=== PATIENT | female | born 1975 | race Caucasian/White ===

== ENCOUNTER → 2023-08-19 12:36 | Outpatient (REF) | payer BC, SELFPAY | LOC: RAD 12:36 | PROVIDERS: ATTENDING PHYSICIAN Obstetrics & Gynecology Gynecology; FAMILY PHYSICIAN Family Medicine | DX: N93.9 Abnormal uterine and vaginal bleeding, unspecified (principal) | CPT/HCPCS: 76830; 76856 ==

== ENCOUNTER → 2023-10-24 08:52 | Outpatient (REF) | payer BC, SELFPAY | LOC: WDC 08:52 | PROVIDERS: ATTENDING PHYSICIAN Obstetrics & Gynecology Gynecology; FAMILY PHYSICIAN Family Medicine | DX: R92.2 Inconclusive mammogram (principal) | CPT/HCPCS: 76641 ==

== ENCOUNTER → 2023-10-29 12:11 | Outpatient (REF) | payer BC, SELFPAY | LOC: RAD 12:11 | PROVIDERS: ATTENDING PHYSICIAN Nurse Practitioner Family; FAMILY PHYSICIAN Family Medicine | DX: M53.9 Dorsopathy, unspecified (principal) | CPT/HCPCS: 72110 ==

== ENCOUNTER → 2024-01-19 13:56 | Outpatient (REF) | payer BC, SELFPAY | LOC: RCS 13:56 | PROVIDERS: ATTENDING PHYSICIAN Internal Medicine Cardiovascular Disease; FAMILY PHYSICIAN Family Medicine | DX: R00.2 Palpitations (principal) | CPT/HCPCS: 93306 ==

== ENCOUNTER → 2024-03-20 13:32 | Outpatient (REF) | payer BC, SELFPAY | LOC: WDC 13:32 | PROVIDERS: ATTENDING PHYSICIAN Obstetrics & Gynecology Gynecology; FAMILY PHYSICIAN Family Medicine | DX: Z12.31 Encounter for screening mammogram for malignant neoplasm of breast (principal) | CPT/HCPCS: 77063; 77067 ==

== ENCOUNTER 2024-07-05 10:40 | Emergency (ER) | payer BC, SELFPAY ==
[2024-07-05 10:58] VITALS: BP 139/88
--- NOTE | 2024-07-05 11:03 | ED.GENMED ---
ED Provider Triage
<Lashell Galicia PA-C - Last Filed: 07/05/24 11:20>
-
Patient seen by provider in Triage?: Seen in Triage
49yoF here with a migraine x 4 days. C/o L arm tingling that started this morning. Called her neurologist and prescribed a steroid pack but told to go to the ED for eval. Headache currently a 4-5/10 in severity. Has not had a migraine in many years,
controlled on Emgality. Denies CP/SOB. No weakness, paresthesias, visual changes, vomiting.
No focal deficits noted. Will order labs and CT head.
History of Present Illness
<Lashell Galicia PA-C - Last Filed: 07/05/24 11:20>
General
Chief Complaint: Headache
Time Seen by Provider: 07/05/24 11:49
<Allison Pinzon SUPERVISOR GLYCERIN - Last Filed: 07/05/24 18:19>
General
Source: patient
Exam Limitations: none
Nursing documentation reviewed up to this point in time: agreed with
History of Present Illness
History of Present Illness:
49-year-old female with history of migraines, GERD, anxiety presents for general headache that goes from the back of her neck and around her head, '06/03.' She states she has had the headache for the past 4 days and has been taking Advil with no
improvement. She does have a history of migraines but has not had one for 6 years as she is taking Emgality. She states she has been sleeping well and the headache is not there in the mornings when she wakes up but it comes shortly after she is up
and around. Today she awakened with left arm feeling 'numb-candace and tingling.' She called her headache specialist PA and has an appointment in 3 weeks. He sent in a prescription for a Medrol Dosepak and also for Nurtec and Ubrelvy. He instructed
her to come to ED due to the left arm numbness. She admits she thinks she slept on the arm 'wrong' and this numb feeling is almost completely gone.
Past History
<Allison Pinzon SUPERVISOR GLYCERIN - Last Filed: 07/05/24 18:19>
Past History
ED Past Medical History: GERD and Other (Migraines)
ED Past Surgical History: and Other (hernia repair)
Review of Systems
<Allison Pinzon SUPERVISOR GLYCERIN - Last Filed: 07/05/24 18:19>
Review of Systems
Allergies reviewed?: Yes
All Other Systems: ROS reviewed and negative except as documented in HPI and ROS
Constitutional: Denies fever or chills
ABD/GI: Denies nausea or vomiting
Skin: Reports no symptoms
Neurological: Reports headache and other (numbness/tingling left arm on awakening, almost completely resolved); Denies dizzy or weakness
Phy Exam
<Allison Pinzon SUPERVISOR GLYCERIN - Last Filed: 07/05/24 18:19>
Physical Exam
Physical Exam:
GENERAL: No acute distress. A&Ox3.
CONSTITUTIONAL: Afebrile.
EYES: clear, conjunctivae normal
ENMT: moist mucus membranes, Pharynx nl
RESPIRATORY: Regular respirations, nonlabored, lungs clear.
CARDIOVASCULAR: Regular rate and rhythm, no murmurs, no rubs.
GI: Soft, nontender, normal BS
MUSCULOSKELETAL: Moves with ease. Well perfused.
SKIN: Warm, dry, pink
PSYCH: Normal mood and affect. Well kept, interactive and appropriate
NEUROLOGIC: Awake, alert and oriented. Speech clear. Cranial nerves II through XII intact. Hand grasps is 5/5. Sensation equal to touch bilateral upper extremities. No focal neurological deficits
Course
<Lashell Galicia PA-C - Last Filed: 07/05/24 11:20>
Orders/Labs/Results
Orders:
Orders
07/05/24 11:13
Complete Blood Count/With Diff Urgent
Comprehensive Metabolic Panel Urgent
HCG, Serum Qualitative Screen Urgent
Magnesium Urgent
Test Result ONCE
07/05/24 11:14
CT Head W/o Iv Contrast Urgent
Comment:
Reason For Exam: RAYMUNDO, L arm tingling
Abnormal Lab Results
07/05/24
11:13
MCH 32.1 H pg
(27.0-31.0)
Absolute Lymphs (auto) 1.1 L 10^3/uL
(1.2-3.4)
Lymphocytes % 17.8 L %
(20.5-51.1)
Carbon Dioxide 31 H mmol/L
(22-30)
07/05/24 11:13
07/05/24 11:13
Vital Signs
Initial and Last Documented VS:
Initial Vital Signs
Temp Pulse Resp BP Pulse Ox
98.4 F 63 16 139/88 100
07/05/24 10:58 07/05/24 10:58 07/05/24 10:58 07/05/24 10:58 07/05/24 10:58
Last Documented Vital Signs
Temp Pulse Resp BP Pulse Ox
98.4 F 63 16 139/88 100
07/05/24 10:58 07/05/24 10:58 07/05/24 12:25 07/05/24 10:58 07/05/24 10:58
<Allison Pinzon, SUPERVISOR GLYCERIN - Last Filed: 07/05/24 18:19>
Orders/Labs/Results
Orders:
Orders
07/05/24 11:13
Complete Blood Count/With Diff Urgent
Comprehensive Metabolic Panel Urgent
HCG, Serum Qualitative Screen Urgent
Magnesium Urgent
Test Result ONCE
07/05/24 11:14
CT Head W/o Iv Contrast Urgent
Comment:
Reason For Exam: RAYMUNDO, L arm tingling
Abnormal Lab Results
07/05/24
11:13
MCH 32.1 H pg
(27.0-31.0)
Absolute Lymphs (auto) 1.1 L 10^3/uL
(1.2-3.4)
Lymphocytes % 17.8 L %
(20.5-51.1)
Carbon Dioxide 31 H mmol/L
(22-30)
07/05/24 11:13
07/05/24 11:13
Vital Signs
Initial and Last Documented VS:
Initial Vital Signs
Temp Pulse Resp BP Pulse Ox
98.4 F 63 16 139/88 100
07/05/24 10:58 07/05/24 10:58 07/05/24 10:58 07/05/24 10:58 07/05/24 10:58
Last Documented Vital Signs
Temp Pulse Resp BP Pulse Ox
98.4 F 63 16 139/88 100
07/05/24 10:58 07/05/24 10:58 07/05/24 12:25 07/05/24 10:58 07/05/24 10:58
<Allison Pinzon, SUPERVISOR GLYCERIN - Last Filed: 07/05/24 18:19>
MDM/Problems Addressed
Differential Diagnosis Includes:
migraine, tension headache, brain bleed/tumor
L arm paresthesia from position while sleeping, cervical radiculopathy,CVA/TIA
MDM/Problems Addressed:
49-year-old female with history of migraines, GERD, anxiety presents for general headache that goes from the back of her neck and around her head, '06/03.' She states she has had the headache for the past 4 days and has been taking Advil with no
improvement. She does have a history of migraines but has not had one for 6 years as she is taking Emgality. She used to take Nurtec and Ubrelvy but has none as she hasn't needed it. She states she has been sleeping well and the headache is not
there in the mornings when she wakes up but it comes shortly after she is up and around. Today she awakened with left arm feeling 'numb-candace and tingling.' She called her headache specialist [facility] and has an appointment in 3 weeks. He sent in a
prescription for a Medrol Dosepak and also for Nurtec and Ubrelvy. He instructed her to come to ED due to the left arm numbness. She admits she thinks she slept on the arm 'wrong' and this numb feeling is almost completely gone.
Head CT neg
CBC, CMP unremarkable
No neuro deficits
Left arm paresthesia very much improved, most likely from sleeping in a position that compressed the nerves and vessels.
Patient is pleasant and states headache is not that bad at this time, she just wanted to get the head CT as directed by her headache specialist
Pt ambulated out with normal gait at discharge
<Allison Pinzon SUPERVISOR GLYCERIN - Last Filed: 07/05/24 18:19>
*Critical Care Note
Total Time (30-74mins, 75-104mins- exclusive of procedures): Not Applicable
ED Attending Note
<Lashell Galicia PA-C - Last Filed: 07/05/24 11:20>
-
Portions of this chart may have been created with voice recognition software.� Occasional wrong word or��sound alike� substitutions may have occurred due to the inherent limitations of voice recognition software.
Discharge Plan
Departure
Patient Disposition: Home (Routine Discharge)
Date of Disposition: 07/05/24
Time of Disposition: 12:50
Patient with high blood pressure during this ER visit?: No
Condition: Good
Discharge Problem:
Headache
Instructions: Headache, Adult (DC)
Referrals:
Your, headache specialist [Other] - Keep scheduled appt
Sofia Ortiz MD [Family Provider] -
Activity Restrictions/Additional Instructions:
As we discussed, your head CT is normal.
Keep your appointment with your headache specialist as scheduled
Interventions
Interventions:
*Risk Screen - Suicide Last Done: 07/05/24 11:03
*General Assessment Last Done: 07/05/24 12:25
*Neglect/Abuse Screening Last Done: 07/05/24 11:03
*ED- Fall Risk Assessment Last Done: 07/05/24 12:25
*ED COVID-19 Vaccine History Last Done: 07/05/24 12:26
*Nursing Disposition Last Done: 07/05/24 13:05
ED- Neurological Assessment Last Done: 07/05/24 12:25
Discharge Date and Time
Discharge Date/Time: 07/05/24 13:06
Print Language: CROATIAN
[2024-07-05 11:34] LABS: % Basophils 0.7 % (0-2); % Eosinophils 3.8 % (0-6); % Immature Granulocytes 0.2 % (0-0.5); % Lymphocytes 17.8 % (20.5-51.1); % Monocytes 7.2 % (1.7-9.3); % Neutrophils 70.3 % (42.2-75.2); Absolute Eosinophils 0.2 10^3/uL (0-0.7); Absolute Lymphocytes 1.1 10^3/uL (1.2-3.4); Absolute Monocytes 0.4 10^3/uL (0.1-0.6); Absolute Neutrophils 4.3 10^3/uL (1.4-6.5); Hematocrit 40.6 % (37.0-47.0); Mean Corp Hgb Conc. 34.5 g/dL (33.0-37.0); Mean Corpuscular Hgb 32.1 pg (27.0-31.0); Mean Corpuscular Volume 93.1 fL (81.0-99.0); Mean Platelet Volume 8.9 fL (7.4-10.4); Nucleated Red Blood Cells % 0 %; Platelet Count 253 10^3/uL (130-400); Red Blood Cell Count 4.36 10^6/uL (4.20-5.40); Red Cell Dist. Width 12.2 % (11.5-14.5); White Blood Cell Count 6.1 10^3/uL (4.8-10.8)
[2024-07-05 11:44] LABS: HCG, Serum Qualitative Screen Negative
[2024-07-05 11:49] LABS: ALT (SGPT) 16 U/L (0-35); AST (SGOT) 19 U/L (14-36); Alkaline Phosphatase 75 U/L (38-126); Blood Urea Nitrogen 17 mg/dl (7-17); Calcium 9.6 mg/dl (8.4-10.2); Carbon Dioxide 31 mmol/L (22-30); Chloride 103 mmol/L (98-107); Glucose 97 mg/dl (70-99); Magnesium 2.1 mg/dl (1.6-2.3); Potassium 4.7 mmol/L (3.5-5.1); Sodium 140 mmol/L (135-145); Total Bilirubin 0.5 mg/dl (0.2-1.3); Total Protein 6.9 g/dl (6.3-8.2); eGFR > 60.00
== END 2024-07-05 13:06 | disposition home or self-care (01) ==
LOC: EMR 10:40
PROVIDERS: Physician Assistant; EMERGENCY PHYSICIAN Emergency Medicine; FAMILY PHYSICIAN Family Medicine
DX: R51.9 Headache, unspecified (principal); K21.9 Gastro-esophageal reflux disease without esophagitis; F41.9 Anxiety disorder, unspecified
CPT/HCPCS: 99284; 70450; 80053; 83735; 84703; 85025

== ENCOUNTER 2024-09-27 06:14 | Day surgery (SDC) | payer BC, SELFPAY | END 2024-09-27 08:59 | disposition home or self-care (01) | LOC: GI 06:14 | PROVIDERS: ATTENDING PHYSICIAN Internal Medicine Gastroenterology | DX: Z12.11 Encounter for screening for malignant neoplasm of colon (principal); D12.0 Benign neoplasm of cecum; K63.89 Other specified diseases of intestine; D12.8 Benign neoplasm of rectum; Z86.0100 Personal history of colon polyps, unspecified | CPT/HCPCS: 45385; 45380; 88305 ==